=== PATIENT | female | born 1955 | race Caucasian/White ===

== ENCOUNTER → 2016-12-22 | Outpatient (CLI) | payer BC | LOC: CARD 10:39 | PROVIDERS: ATTEND Internal Medicine | DX: R00.1 Bradycardia, unspecified (principal) | CPT/HCPCS: 93225; 93226 ==

== ENCOUNTER 2019-11-18 15:02 | Emergency (ER) | payer MEDICARE, BC ==
[~2019-11-18] VITALS: Ht 167 cm; Wt 75.0 kg
--- NOTE | 2019-11-18 15:22 | ED EENT ---
History of Present Illness General Chief Complaint: Eye Problems Stated Complaint: ALTERED VISION Source: patient Exam Limitations: no limitations History of Present Illness Date Seen by Provider: Nov 18, 2019 Time Seen by Provider: 15:05 Initial Comments The patient is a 64-year-old female who presents for evaluation of flashing in her left visual field as well as a mild headache which started approximately 15 minutes prior to arrival. The patient states she has had worse headaches in the past. She states that she has also had migraines in the past. She reports that she takes amlodipine for hypertension and is not on any anticoagulation. She is alert and oriented 4, calm, and appears to be in no distress. She denies neck pain or stiffness, fevers or chills, nausea or vomiting, dizziness, chest pain or shortness of breath, abdominal or back pain, focal weakness or numbness, palpitations or syncope. She denies any pain in either eye any change in visual acuity grossly across the room. She denies any flashing in her eyes right now. She is noted to have an elevated blood pressure upon arrival. Timing/Duration: abrupt Severity: mild Location: eye (L) Prearrival Treatment: no prearrival treatment Allergies and Home Medications Allergies Coded Allergies: levofloxacin (Verified Allergy, Unknown, 11/18/19) Patient Home Medication List Home Medication List Reviewed: Yes Review of Systems Review of Systems Constitutional: no symptoms reported Eyes: Vision Changes (left visual field with bright flashes, no pain, normal vision, not currently occurring) Nose: no symptoms reported Mouth: no symptoms reported Throat: no symptoms reported Respiratory: no symptoms reported Cardiovascular: no symptoms reported Gastrointestinal: no symptoms reported Musculoskeletal: no symptoms reported Skin: no symptoms reported Neurological: No Symptoms Reported, Headache Hematologic/Lymphatic: No Symptoms Reported Immunological/Allergic: no symptoms reported All Other Systems Reviewed Negative Unless Noted: Yes Past Twbvnyx-Uxqexd-Djaabu Hx Past Med/Social Hx: Reviewed Nursing Past Med/Soc Hx Patient Social History Alcohol Use: Regular Use Number of Drinks Today: 2 Recreational Drug Use: No Smoking Status: Never a Smoker 2nd Hand Smoke Exposure: No Recent Foreign Travel: No Contact w/Someone Who Travel: No Recent Hopitalizations: No Seasonal Allergies Seasonal Allergies: No Past Medical History Surgeries: Yes (NOSE, TOES, HAND, LASIK EYE SURGERY) Orthopedic Respiratory: Yes (USES NASAL CANNULA AT NIGHT BUT REPORTS SHE DOES NOT HAVE SLEEP APNEA) Cardiac: Yes Hypertension Neurological: No Genitourinary: No Gastrointestinal: No Musculoskeletal: No Endocrine: Yes Hypothyroidsim HEENT: No Cancer: No Psychosocial: No Integumentary: No Blood Disorders: No Physical Exam Vital Signs Vital Signs - First Documented 11/18/19 11/18/19 15:15 15:43 Temp 36.8 Pulse 62 Resp 18 B/P (MAP) 202/82 (122) Pulse Ox 99 Height, Weight, BMI Height: '" Weight: lbs. oz. kg; BMI Method: General Appearance: WD/WN, no apparent distress Eyes: bilateral eye normal inspection, bilateral eye PERRL, bilateral eye EOMI Mouth/Throat: normal mouth inspection, pharynx normal Neck: non-tender, full range of motion, supple, normal inspection Cardiovascular: regular rate, rhythm, no edema, no gallop, no murmur, bradycardia Respiratory: chest non-tender, lungs clear, normal breath sounds, no respiratory distress, no accessory muscle use Gastrointestinal: normal bowel sounds, non tender, soft Neurologic/Psychiatric: inhalation therapy aide II-XII nml as tested, no motor/sensory deficits, alert, normal mood/affect, oriented x 3 Skin: normal color, warm/dry Progress/Results/Core Measures Results/Orders Lab Results Laboratory Tests Test 11/18/19 15:10 Range/Units White Blood Count 6.7 4.3-11.0 10^3/uL Red Blood Count 4.59 4.35-5.85 10^6/uL Hemoglobin 14.7 11.5-16.0 G/DL Hematocrit 44 35-52 % Mean Corpuscular Volume 96 80-99 FL Mean Corpuscular Hemoglobin 32 25-34 PG Mean Corpuscular Hemoglobin Concent 34 32-36 G/DL Red Cell Distribution Width 13.7 10.0-14.5 % Platelet Count 318 130-400 10^3/uL Mean Platelet Volume 9.4 7.4-10.4 FL Neutrophils (%) (Auto) 54 42-75 % Lymphocytes (%) (Auto) 33 12-44 % Monocytes (%) (Auto) 10 0-12 % Eosinophils (%) (Auto) 2 0-10 % Basophils (%) (Auto) 1 0-10 % Neutrophils # (Auto) 3.6 1.8-7.8 X 10^3 Lymphocytes # (Auto) 2.3 1.0-4.0 X 10^3 Monocytes # (Auto) 0.7 0.0-1.0 X 10^3 Eosinophils # (Auto) 0.1 0.0-0.3 10^3/uL Basophils # (Auto) 0.0 0.0-0.1 10^3/uL Sodium Level 139 135-145 MMOL/L Potassium Level 4.4 3.6-5.0 MMOL/L Chloride Level 103 98-107 MMOL/L Carbon Dioxide Level 23 21-32 MMOL/L Anion Gap 13 5-14 MMOL/L Blood Urea Nitrogen 22 H 7-18 MG/DL Creatinine 0.87 0.60-1.30 MG/DL Estimat Glomerular Filtration Rate > 60 BUN/Creatinine Ratio 25 Glucose Level 113 H 70-105 MG/DL Calcium Level 9.7 8.5-10.1 MG/DL Corrected Calcium 8.5-10.1 MG/DL Total Bilirubin 0.5 0.1-1.0 MG/DL Aspartate Amino Transf (AST/SGOT) 22 5-34 U/L Alanine Aminotransferase (ALT/SGPT) 24 0-55 U/L Alkaline Phosphatase 82 40-136 U/L Troponin I < 0.30 <0.30 NG/ML Total Protein 8.1 6.4-8.2 GM/DL Albumin 4.8 H 3.2-4.5 GM/DL My Orders Orders - LISSETT LÓPEZ DO Ct Head Wo (11/18/19 15:11) Cbc With Automated Diff (11/18/19 15:11) Comprehensive Metabolic Panel (11/18/19 15:11) Ed Iv/Invasive Line Start (11/18/19 15:11) Departmental Shipping Clerk (11/18/19 15:11) Troponin I Fs (11/18/19 15:11) Ekg Tracing (11/18/19 15:11) Continuous Ekg Monitoring (11/18/19 15:11) Hydralazine Injection (Apresoline Inject (11/18/19 15:45) Metoclopramide Injection (Reglan Injecti (11/18/19 16:00) Diphenhydramine Injection (Benadryl Inje (11/18/19 16:00) Ketorolac Injection (Toradol Injection) (11/18/19 16:00) Ns Iv 1000 Ml (Sodium Chloride 0.9%) (11/18/19 16:00) Medications Given in ED Current Medications Medications Dose Ordered Sig/Jack Route Start Time Stop Time Status Last Admin Dose Admin Diphenhydramine HCl 25 mg ONCE ONCE IVP 11/18/19 16:00 11/18/19 16:01 DC 11/18/19 16:03 25 MG Ketorolac Tromethamine 30 mg ONCE ONCE IVP 11/18/19 16:00 11/18/19 16:01 DC 11/18/19 16:03 30 MG Metoclopramide HCl 10 mg ONCE ONCE IVP 11/18/19 16:00 11/18/19 16:01 DC 11/18/19 16:04 10 MG Vital Signs/I&O 11/18/19 11/18/19 15:15 15:43 Temp 36.8 Pulse 62 Resp 18 18 B/P (MAP) 202/82 (122) 154/83 (106) Pulse Ox 99 Progress Progress Note : Progress Note @1625 - the patient's blood pressure return to acceptable value prior to the hydralazine being given so it will be canceled. The patient has no complaints, states that she is feeling better, and is asking to go home. Her vision is normal. She denies headache. Advised the patient to follow up with her PCP in the next 1-2 days and to return to the emergency Department immediately for new or worsening symptoms. The patient expresses verbal understanding and agreement with the plan and she is stable for discharge. Workup today fails to reveal any emergent pathology. EKG : Comment EKG@1513 - sinus bradycardia, rate of 50, normal axis, no acute ischemic findings noted, no STEMI, reviewed and interpreted by myself Departure Impression Primary Impression: Migraine Additional Impression: Flashing lights seen Disposition: HOME, SELF-CARE Condition: Stable Departure-Patient Inst. Decision time for Depature: 16:27 Referrals: FABIAN HAYS DO (PCP/Family) Primary Care Physician Patient Instructions: Migraine Headache (DC) Add. Discharge Instructions: Follow-up with your doctor in the next 1-2 days. Return to the Emergency Department immediately for new or worsening symptoms. Take Tylenol or ibuprofen at home for pain relief is needed. LISSETT LÓPEZ DO Nov 18, 2019 15:22
[2019-11-18] MEDS: hydrALAZINE (APESOLINE) 20 MG/ML VIAL IV ONE ×2 (15:30→15:40)
--- NOTE | 2019-11-18 15:41 | Diagnostic Imaging Report ---
PROCEDURE: CT head without contrast. TECHNIQUE: Multiple contiguous axial images were obtained through the brain without the use of intravenous contrast. Auto Exposure Controls were utilized during the CT exam to meet ALARA standards for radiation dose reduction. INDICATION: Flashes of light in the left eye. Symptoms last about 20 minutes and are intermittent. COMPARISON: No priors. FINDINGS: There is no intracerebral hemorrhage. There is no hydrocephalus. No edema, mass, or mass effect. The basilar cisterns are patent. There is no sulcal effacement. There is no evidence for an elevation of the intracranial pressures. There is no hydrocephalus. The orbits, sinuses, and calvarium are nonacute. IMPRESSION: No hemorrhage, edema, hydrocephalus, or acute appearing abnormalities. Dictated by: Dictated on workstation # [id number]
[2019-11-18 15:43] VITALS: BP 154/83
--- NOTE | 2019-11-18 15:44 | NUR ---
HYDRALAZINE NOT GIVEN DUE TO PTS BLOOD PRESSURE DOWN TO 154/83. DR. LÓPEZ.
[2019-11-18 15:49] LABS: HEMATOCRIT 44 % (35-52); HEMOGLOBIN 14.7 G/DL (11.5-16.0); MEAN CORPUSCULAR HEMOGLOBIN 32 PG (25-34); MEAN CORPUSCULAR HGB CONC 34 G/DL (32-36); MEAN CORPUSCULAR VOLUME 96 FL (80-99); MEAN PLATELET VOLUME 9.4 FL (7.4-10.4); NEUTROPHILS % (AUTO) 54 % (42-75); PLATELET COUNT 318 10^3/uL (130-400); RED CELL DISTRIBUTION WIDTH 13.7 % (10.0-14.5); WHITE BLOOD COUNT 6.7 10^3/uL (4.3-11.0)
[2019-11-18 15:50] LABS: BASOPHILS % (AUTO) 1 % (0-10); EOSINOPHILS # (AUTO) 0.1 10^3/uL (0.0-0.3); EOSINOPHILS % (AUTO) 2 % (0-10); LYMPHOCYTES # (AUTO) 2.3 X 10^3 (1.0-4.0); LYMPHOCYTES % (AUTO) 33 % (12-44); MONOCYTES # (AUTO) 0.7 X 10^3 (0.0-1.0); MONOCYTES % (AUTO) 10 % (0-12); NEUTROPHILS # (AUTO) 3.6 X 10^3 (1.8-7.8)
[2019-11-18 15:51] LABS: CHLORIDE 103 MMOL/L (98-107); POTASSIUM 4.4 MMOL/L (3.6-5.0); SODIUM 139 MMOL/L (135-145)
[2019-11-18 15:52] LABS: ALANINE AMINOTRANSFERASE 24 U/L (0-55); ALBUMIN 4.8 GM/DL (3.2-4.5); ALKALINE PHOSPHATASE 82 U/L (40-136); BILIRUBIN,TOTAL 0.5 MG/DL (0.1-1.0); BUN/CREATININE RATIO 25; CALCIUM 9.7 MG/DL (8.5-10.1); CARBON DIOXIDE 23 MMOL/L (21-32); CREATININE SERUM 0.87 MG/DL (0.60-1.30); GFR ESTIMATED > 60; GLUCOSE 113 MG/DL (70-105); TOTAL PROTEIN 8.1 GM/DL (6.4-8.2)
[2019-11-18] MEDS ORDERED: METOCLOPRAMIDE INJ 10 MG/2 ML (REGLAN) IVP ONE (16:00)
[2019-11-18] MEDS ORDERED: KETOROLAC 30 MG/ML VIAL IVP ONE (16:00)
[2019-11-18] MEDS ORDERED: NS IV 1000 ML 1,000 ML IV SCH (16:00)
[2019-11-18] MEDS ORDERED: diphenhydrAMINE 50 MG/ML INJ (BENADRYL) IVP ONE (16:00)
[2019-11-18 16:50] VITALS: BP 151/65
== END 2019-11-18 16:50 | disposition home or self-care (01) ==
LOC: EDUNIT# 15:02 → ER FS 15:03
DX: G43.909 Migraine, unspecified, not intractable, without status migrainosus (principal); H57.89 Other specified disorders of eye and adnexa; I10 Essential (primary) hypertension; Z88.8 Allergy status to other drugs, medicaments and biological substances
CPT/HCPCS: 36415; 70450; 80053; 84484; 85025; 93005; 96374; 96375

== ENCOUNTER 2021-01-31 11:56 | Emergency (ER) | payer MEDICARE, BC ==
[~2021-01-31] VITALS: Ht 167.7 cm; Wt 90.9 kg
[2021-01-31] MEDS ORDERED: LOSA50TA63 (12:26)
[2021-01-31] MEDS ORDERED: AMLO-250 (12:26)
--- NOTE | 2021-01-31 12:48 | ED Lower Extremity ---
General Chief Complaint: Lower Extremity Stated Complaint: LT CALF PAIN/SWELLING Nursing Triage Note: Pt presents to ED sent from [facility] for 24 hr hx left calf edema and pain. There is no ultrasound coverage with [facility] today. Nursing Sepsis Screen: No Definite Risk Source: patient Exam Limitations: no limitations History of Present Illness Date Seen by Provider: January 31, 2021 Time Seen by Provider: 11:50 Initial Comments Patient is a 65-year-old female presents with left leg/calf swelling tenderness for 1 day. Denies trauma repetitive strain injury. Denies history of DVT PE. Patient does not complain of chest pain or shortness of breath. No redness, st reaking induration fever history of cellulitis. Patient is not diabetic. No other acute symptoms or complaints. Patient was evaluated by her PCP prior to ED arrival and referred for an ultrasound of her lower extremity. Onset: yesterday Pain/Injury Location: left leg Method of Injury: other Modifying Factors: Improves With Movement, Improves With Other Allergies and Home Medications Allergies Coded Allergies: levofloxacin (Verified Allergy, Unknown, 11/18/19) Patient Home Medication List Home Medication List Reviewed: Yes Review of Systems Constitutional: see HPI EENTM: see HPI Respiratory: see HPI Cardiovascular: see HPI Gastrointestinal: see HPI Genitourinary: see HPI Musculoskeletal: see HPI Skin: see HPI Psychiatric/Neurological: See HPI All Other Systems Reviewed Negative Unless Noted: Yes Past Ywdyyff-Eqkuqc-Uxwwzh Hx Past Med/Social Hx: Reviewed Nursing Past Med/Soc Hx Patient Social History Alcohol Use: Denies Use Smoking Status: Never a Smoker 2nd Hand Smoke Exposure: No Recent Infectious Disease Expo: No Recent Hopitalizations: No Seasonal Allergies Seasonal Allergies: No Past Medical History Surgeries: Yes (NOSE, TOES, HAND, LASIK EYE SURGERY) Orthopedic Respiratory: Yes (USES NASAL CANNULA AT NIGHT BUT REPORTS SHE DOES NOT HAVE SLEEP APNEA) Cardiac: Yes Hypertension Neurological: No Genitourinary: No Gastrointestinal: No Musculoskeletal: No Endocrine: Yes Hypothyroidsim HEENT: Yes (EYE TENDON SURGERY, HX RETINAL DETACHMENT) Cancer: No Psychosocial: No Integumentary: No Blood Disorders: No Physical Exam Vital Signs Vital Signs - First Documented 01/31/21 12:00 Temp 36.6 Pulse 56 Resp 20 B/P (MAP) 155/70 (98) Pulse Ox 98 O2 Delivery Room Air Capillary Refill : Less Than 3 Seconds Height, Weight, BMI Height: '" Weight: lbs. oz. kg; 32.00 BMI Method: General Appearance: WD/WN, no apparent distress HEENT: PERRL/EOMI Neck: non-tender Cardiovascular: normal peripheral pulses, regular rate, rhythm Respiratory: chest non-tender, lungs clear, normal breath sounds Legs: left leg soft tissue tenderness Neurologic/Tendon: normal sensation, normal motor functions Neurologic/Psychiatric: alert, oriented x 3 Skin: normal color Progress/Results/Core Measures Results/Orders My Orders Orders - HEMA MENDENHALL DO Us Venous Lower Ext Lt (01/31/21 12:15) Vital Signs/I&O 01/31/21 12:00 Temp 36.6 Pulse 56 Resp 20 B/P (MAP) 155/70 (98) Pulse Ox 98 O2 Delivery Room Air Blood Pressure Mean: 98 Departure Communication (Admissions) Venous Doppler ultrasound left lower extremity: Small DVT in the distal peroneal vein. No chest pain or shortness of breath. Xarelto prescribed. Impression Primary Impression: Left leg DVT Disposition: 01 HOME, SELF-CARE Condition: Stable Departure-Patient Inst. Decision time for Depature: 12:49 Referrals: FABIAN HAYS DO (PCP/Family) Primary Care Physician Patient Instructions: Deep Vein Thrombosis (DVT) ED Add. Discharge Instructions: Your evaluated emergency department for left leg pain and swelling. Ultrasound was performed and shows a small DVT in your left calf vein. Please take newly prescribed medications as directed and follow-up with your PCP. All discharge instructions reviewed with patient and/or family. Voiced understanding. Scripts Rivaroxaban (Xarelto Starter Pack) 1 Each Tab.ds.pk 1 EACH PO UD, #51 PKG 15mg by mouth twice daily x 21 days then 20mg by mouth daily Prov: HEMA MENDENHALL DO 01/31/21 HEMA MENDENHALL DO January 31, 2021 12:48
[2021-01-31] MEDS ORDERED: RIVA1TAB PO (12:53)
--- NOTE | 2021-01-31 12:56 | Diagnostic Imaging Report ---
INDICATION: Left leg pain TECHNIQUE: Multiple real-time grayscale images were obtained over the left lower extremity in various projections, bilaterally. Additional duplex Doppler and color Doppler images were also obtained. CORRELATION STUDY: None FINDINGS: Findings are positive for occlusive clot within the large portion of the peroneal vein within the left calf. More centrally, the popliteal vein, femoral vein in the thigh and common femoral vein are patent and unremarkable. No soft tissue fluid collection. IMPRESSION: 1. Findings positive for occlusive clot within the peroneal vein left leg. Dictated by: Dictated on workstation # [id number]
[2021-01-31 13:00] VITALS: BP 155/70
== END 2021-01-31 13:00 | disposition home or self-care (01) ==
LOC: EDUNIT# 11:56 → ER FS 11:57
DX: I82.402 Acute embolism and thrombosis of unspecified deep veins of left lower extremity (principal); I10 Essential (primary) hypertension; Z88.1 Allergy status to other antibiotic agents

== ENCOUNTER 2022-09-14 07:50 | Emergency (ER) | payer MEDICARE, BC ==
[~2022-09-14] VITALS: Ht 162 cm; Wt 86.0 kg
[~2022-09-14 07:50] MED LIST: AMLO-250; LOSA50TA63; RIVA1TAB PO
[2022-09-14] MEDS ORDERED: ORPHENADRINE 60 MG/2 ML (NORFLEX) AMP (ED ONLY) IVP STA (08:02)
[2022-09-14] MEDS ORDERED: ONDANSETRON 4 MG/2 ML (SDV) Z0FRAN IVP STA (08:02)
[2022-09-14] MEDS ORDERED: KETOROLAC 30 MG/ML VIAL IVP STA (08:02)
[2022-09-14] MEDS ORDERED: diphenhydrAMINE 50 MG/ML INJ (BENADRYL) IVP STA (08:02)
[2022-09-14] MEDS ORDERED: NS IV 1000 ML 1,000 ML IV STA (08:02)
--- NOTE | 2022-09-14 08:10 | ED Headache ---
General Chief Complaint: Head/Cervical Problems Stated Complaint: HEADACHE Source: patient, spouse History of Present Illness Date Seen by Provider: Sep 14, 2022 Time Seen by Provider: 07:55 Initial Comments 67 yo female presenting with complaint of right occipital headache since waking up yesterday morning. She denies having headache like this before and states it is severe. It feels like she is being stabbed in back of right side of head with an ice pick over and over. She denies any radiation of the pain. She woke up with the pain yesterday. She denies trauma or injury. No fever, chills, vision change, vomiting, diarrhea, cough, pain with urination. She has nausea but has not thrown up. She had taken Acetaminophen for the pain with little to no relief. 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 She states she has a remote history of migraine headaches but they were never like this. She thought the pain would get better but it continued all day and overnight so she came to the ED this am. She denies any numbness, tingling or weakness in her arms or legs. Timing/Duration: 24 hours Severity/Quality: severe, stabbing Location: occipital (right side) Prior Headaches/Recent Trauma: no recent headache/trauma Modifying Factors: improves with other (nothing was making it better or worse. It just has more severe pain about every 30 seconds to a minute) Associated Symptoms: No confusion, No fatigue, No facial pain, No fever/chills, No flushing, No loss of consciousness, No nasal congestion, No nasal drainage, No numbness in legs/feet, No rash, No seizures, No sinus infection, No stiff neck, No vision changes, No weakness Allergies and Home Medications Allergies Coded Allergies: levofloxacin (Verified Allergy, Unknown, 11/18/19) Patient Home Medication List Home Medication List Reviewed: Yes Amlodipine Besylate (Amlodipine Besylate) 5 Mg Tablet, (Reported) Entered as Reported by: BOB DUKES on 01/31/21 1226 Losartan Potassium (Losartan Potassium) 50 Mg Tablet, (Reported) Entered as Reported by: BOB DUKES on 01/31/21 1226 Orphenadrine Citrate (Orphenadrine Citrate) 100 Mg Tablet.er, 100 MG PO BID PRN for muscle spasms/headache Prescribed by: CORIE CRISTOBAL on 09/14/22 0907 Rivaroxaban (Xarelto Starter Pack) 1 Each Tab.ds.pk, 1 EACH PO UD Prescribed by: HEMA MENDENHALL on 01/31/21 1253 Review of Systems Review of Systems Constitutional: No chills, No dizziness, No fever Eyes: Denies Blurred Vision, Denies Photophobia Ears, Nose, Mouth, Throat: denies ear pain, denies ear discharge, denies nose pain, denies nose discharge, denies epistaxis Respiratory: No cough Cardiovascular: No chest pain Gastrointestinal: No diarrhea; nausea; No vomiting Genitourinary: No dysuria Musculoskeletal: no symptoms reported Skin: No rash Psychiatric/Neurological: Headache; Denies Numbness, Denies Paresthesia, Denies Weakness Past Malmwae-Dnojqd-Fqzuzt Hx Patient Social History Tobacco Use?: No Use of E-Cig and/or Vaping dev: No Substance use?: No Alcohol Use?: Yes Alcohol type: Wine Alcohol Frequency: Several times a month Seasonal Allergies Seasonal Allergies: No Past Medical History Surgery/Hospitalization HX: Hypertension, Hypothyroid Surgeries: Yes (NOSE, TOES, HAND, LASIK EYE SURGERY) Orthopedic Respiratory: Yes (USES NASAL CANNULA AT NIGHT BUT REPORTS SHE DOES NOT HAVE SLEEP APNEA) Cardiac: Yes Hypertension Neurological: No Genitourinary: No Gastrointestinal: No Musculoskeletal: No Endocrine: Yes Hypothyroidsim HEENT: Yes (EYE TENDON SURGERY, HX RETINAL DETACHMENT) Cancer: No Psychosocial: No Integumentary: No Blood Disorders: No Physical Exam Vital Signs Vital Signs - First Documented 09/14/22 07:57 Temp 36.6 Pulse 73 Resp 18 B/P (MAP) 109/91 (97) O2 Delivery Room Air Capillary Refill : Height, Weight, BMI Height: '" Weight: lbs. oz. kg; 32.00 BMI Method: General Appearance: moderate distress (holding the back of her head on right side and keeping her face down) HEENT: PERRL/EOMI, pharynx normal Neck: non-tender, full range of motion, supple, normal inspection Cardiovascular: normal peripheral pulses, regular rate, rhythm Respiratory: chest non-tender, lungs clear, normal breath sounds Gastrointestinal: normal bowel sounds, soft, no pulsatile mass Extremities: normal range of motion, non-tender, normal capillary refill Psychiatric: alert, oriented x 3 Crainal Nerves: normal hearing, normal speech, PERRL Coordination/Gait: normal gait Motor/Sensory: no motor deficit, no sensory deficit Skin: normal color, warm/dry; No rash Progress/Results/Core Measures Results/Orders Lab Results Laboratory Tests Test 09/14/22 08:06 Range/Units White Blood Count 4.4 4.3-11.0 10^3/uL Red Blood Count 4.42 3.80-5.11 10^6/uL Hemoglobin 14.0 11.5-16.0 g/dL Hematocrit 41 35-52 % Mean Corpuscular Volume 92 80-99 fL Mean Corpuscular Hemoglobin 32 25-34 pg Mean Corpuscular Hemoglobin Concent 35 32-36 g/dL Red Cell Distribution Width 13.7 10.0-14.5 % Platelet Count 220 130-400 10^3/uL Mean Platelet Volume 9.3 9.0-12.2 fL Immature Granulocyte % (Auto) 0 % Neutrophils (%) (Auto) 51 42-75 % Lymphocytes (%) (Auto) 35 12-44 % Monocytes (%) (Auto) 13 H 0-12 % Eosinophils (%) (Auto) 0 0-10 % Basophils (%) (Auto) 1 0-10 % Neutrophils # (Auto) 2.3 1.8-7.8 10^3/uL Lymphocytes # (Auto) 1.5 1.0-4.0 10^3/uL Monocytes # (Auto) 0.6 0.0-1.0 10^3/uL Eosinophils # (Auto) 0.0 0.0-0.3 10^3/uL Basophils # (Auto) 0.0 0.0-0.1 10^3/uL Immature Granulocyte # (Auto) 0.0 0.0-0.1 10^3/uL Sodium Level 137 135-145 MMOL/L Potassium Level 3.7 3.6-5.0 MMOL/L Chloride Level 102 98-107 MMOL/L Carbon Dioxide Level 22 21-32 MMOL/L Anion Gap 13 5-14 MMOL/L Blood Urea Nitrogen 14 7-18 MG/DL Creatinine 0.79 0.60-1.30 MG/DL Estimat Glomerular Filtration Rate 81 BUN/Creatinine Ratio 18 Glucose Level 135 H 70-105 MG/DL Calcium Level 9.2 8.5-10.1 MG/DL Corrected Calcium 8.9 8.5-10.1 MG/DL Total Bilirubin 0.4 0.1-1.0 MG/DL Aspartate Amino Transf (AST/SGOT) 28 5-34 U/L Alanine Aminotransferase (ALT/SGPT) 29 0-55 U/L Alkaline Phosphatase 83 40-136 U/L Total Protein 7.2 6.4-8.2 GM/DL Albumin 4.4 3.2-4.5 GM/DL My Orders Orders - CORIE CRISTOBAL MD Ed Iv/Invasive Line Start (09/14/22 08:02) Cbc With Automated Diff (09/14/22 08:02) Comprehensive Metabolic Panel (09/14/22 08:02) Ketorolac Injection (Toradol Injection) (09/14/22 08:02) Diphenhydramine Injection (Benadryl Inje (09/14/22 08:02) Ondansetron Injection (Zofran Injectio (09/14/22 08:02) Orphenadrine Inj (Ed Only) (Norflex Inje (09/14/22 08:02) Ns Iv 1000 Ml (Sodium Chloride 0.9%) (09/14/22 08:02) Ct Head Wo (09/14/22 08:04) Methylprednisolone Sod Succ (Solu-Medrol (09/14/22 09:05) Vital Signs/I&O 09/14/22 07:57 Temp 36.6 Pulse 73 Resp 18 B/P (MAP) 109/91 (97) O2 Delivery Room Air Progress Progress Note #1: Progress Note Obtain IV access and basic labs to look for signs of infection, anemia, electrolyte imbalance, renal failure, hepatic failure. CT scan of head since she reports this is severe stabbing pain and unlike migraine headaches she had in remote past. Give NS 1 L IVF bolus for hydration, Toradol 30 mg IV for pain, Benadryl 25 mg IV for nausea and anti-histamine effect, Norflex 60 mg IV for muscle spasms in neck, Zofran 4 mg IV for nausea. Progress Note #2: Time: 08:38 Progress Note Patient initially refused Toradol as she was worried it was the medicine she had gotten on a previous ED visit that made her feel eliezer eddy was going to . She reports the pain was better on return from CT. CT scan read out by radiologist as no acute intracranial process. Awaiting chemistry and may still administer Toradol if pain comes back. CBC without elevated WBC and normal blood count and platelets. Progress Note #3: Time: 08:46 Progress Note Chemistry panel without acute significant abnormality. She has mild elevation of glucose to 135 that could be more of stress response with her pain. Will recheck on patient and review test results. This might be headache from sleeping wrong or muscle spasms in neck but no sign of sinusitis, brain mass, bleeding, infection, electrolyte abnormality. Could continue muscle relaxer and nausea med icine at home. Check back with pcp for continued concerns or if not improving. Alternate ice and heat to the right occipital area. Progress Note #4: Time: 09:04 Progress Note After reviewing test results with patient and spouse she continued to have intermittent stabbing pain in back of her head but reports it is improved. She still refuses the Toradol as she thinks it is the medicine that made her feel bad when she had taken it previously. I tried to explain that it was more likely the Reglan (Metoclopramide) that made her feel bad. There is no note about her having symptoms after injections in Oct 2019. She did finally agree to a steroid shot for inflammation and will give Solumedrol 125 mg IV x 1. Encouraged to alternate ice and hat to back of head and neck to help with inflammation and muscle spasms. prescribe norflex for home since she had some improvement here with that by IV. Counseled to check with Dr. Carter for continued symptoms or not improving as she may need MRI or additional testing beyond what I have access to here in [facility] as the tests I ran here did not show any acute abnormality. Diagnostic Imaging Diagonstic Imaging: CT Plain Films/CT/US/NM/MRI: head Comments NAME: CARMELO PEÑA MED REC#: [id number] PT STATUS: REG ER : 1955 PHYSICIAN: CORIE CRISTOBAL MD ADMIT DATE: 09/14/22/ER FS Draft Date of Exam:09/14/22 CT HEAD WO EXAMINATION: CT head without contrast. TECHNIQUE: Multiple contiguous axial images were obtained through the brain without the use of intravenous contrast. All CT scans use one or more of the following dose optimizing techniques: automated exposure control, MA and/or KvP adjustment based on patient size and exam type or iterative reconstruction. HISTORY: right occipital headache x 24 hours COMPARISON: 11/18/2019 FINDINGS: The ventricles and sulci are normal. No abnormal attenuation of brain parenchyma is present. No acute intracranial hemorrhage or abnormal extra-axial fluid collections are present. Calcification of the intracranial ICAs. No hyperdense vessel. The calvarium is intact. The mastoid air cells are clear. The visualized paranasal sinuses are clear. The orbits are normal. IMPRESSION: 1. No acute intracranial abnormality. Dictated on workstation # [id number] Dict: 09/14/22827 Trans: 09/14/22829 [id number] Interpreted by: LISSETT THOMAS DO Electronically signed by: Reviewed: Reviewed by Me Departure Impression Primary Impression: Unilateral occipital headache Disposition: 01 HOME, SELF-CARE Condition: Stable Departure-Patient Inst. Decision time for Depature: 09:08 Referrals: FABIAN CARTER DO (PCP/Family) Primary Care Physician Patient Instructions: Headache, Adult ED, Home Headache Remedies, Using Cold for Pain, Using Heat for Pain Add. Discharge Instructions: Try resting in cool dark room. Consider trying anti-inflammatory medicine such as Ibuprofen or Naproxen to help with the pain. Try the Muscle relaxer Norflex (Orphenadrine) to help with spasms in your neck and back of your head. Try alternating ice and heat to the area on back of your head and neck on right side where you have pain. Check back with your primary care provider for continued concerns or if not improving. Your labs and CT scan of your head do not show any acute findings to be causing your headache. All discharge instructions reviewed with patient and/or family. Voiced understanding. Scripts Orphenadrine Citrate (Orphenadrine Citrate) 100 Mg Tablet.er 100 MG PO BID PRN for muscle spasms/headache for 5 Days, #10 TAB 0 Refills Prov: CORIE CRISTOBAL MD 09/14/22 CORIE CRISTOBAL MD Sep 14, 2022 08:10
[2022-09-14 08:16] LABS: BASOPHILS % (AUTO) 1 % (0-10); EOSINOPHILS % (AUTO) 0 % (0-10); HEMATOCRIT 41 % (35-52); LYMPHOCYTES # (AUTO) 1.5 10^3/uL (1.0-4.0); LYMPHOCYTES % (AUTO) 35 % (12-44); MEAN CORPUSCULAR HEMOGLOBIN 32 pg (25-34); MEAN CORPUSCULAR HGB CONC 35 g/dL (32-36); MEAN CORPUSCULAR VOLUME 92 fL (80-99); MEAN PLATELET VOLUME 9.3 fL (9.0-12.2); MONOCYTES # (AUTO) 0.6 10^3/uL (0.0-1.0); MONOCYTES % (AUTO) 13 % (0-12); NEUTROPHILS # (AUTO) 2.3 10^3/uL (1.8-7.8); NEUTROPHILS % (AUTO) 51 % (42-75); PLATELET COUNT 220 10^3/uL (130-400); WHITE BLOOD COUNT 4.4 10^3/uL (4.3-11.0)
--- NOTE | 2022-09-14 08:31 | Diagnostic Imaging Report ---
EXAMINATION: CT head without contrast. TECHNIQUE: Multiple contiguous axial images were obtained through the brain without the use of intravenous contrast. All CT scans use one or more of the following dose optimizing techniques: automated exposure control, MA and/or KvP adjustment based on patient size and exam type or iterative reconstruction. HISTORY: right occipital headache x 24 hours COMPARISON: 11/18/2019 FINDINGS: The ventricles and sulci are normal. No abnormal attenuation of brain parenchyma is present. No acute intracranial hemorrhage or abnormal extra-axial fluid collections are present. Calcification of the intracranial ICAs. No hyperdense vessel. The calvarium is intact. The mastoid air cells are clear. The visualized paranasal sinuses are clear. The orbits are normal. IMPRESSION: 1. No acute intracranial abnormality. Dictated by: Dictated on workstation # [id number]
[2022-09-14 08:41] LABS: POTASSIUM 3.7 MMOL/L (3.6-5.0)
[2022-09-14 08:42] LABS: ALBUMIN 4.4 GM/DL (3.2-4.5); BILIRUBIN,TOTAL 0.4 MG/DL (0.1-1.0); CALCIUM 9.2 MG/DL (8.5-10.1); CREATININE SERUM 0.79 MG/DL (0.60-1.30); TOTAL PROTEIN 7.2 GM/DL (6.4-8.2)
[2022-09-14] MEDS ORDERED: methylPREDNISolone 125 MG (Solu-MEDROL) VIAL IVP STA (09:05)
[2022-09-14] MEDS ORDERED: ORPH100T PO (09:07)
[2022-09-14 09:19] VITALS: BP 109/91
== END 2022-09-14 09:31 | disposition home or self-care (01) ==
LOC: EDUNIT# 07:50 → ER FS 07:52
DX: R51.9 Headache, unspecified (principal); R73.9 Hyperglycemia, unspecified; Z28.310 Unvaccinated for COVID-19
CPT/HCPCS: 36415; 70450; 80053; 85025

== ENCOUNTER 2022-09-16 16:57 | Emergency (ER) | payer MEDICARE, BC ==
[~2022-09-16 16:57] MED LIST changes: +ORPH100T PO
[2022-09-16] MEDS ORDERED: KETOROLAC 60 MG/2 ML VIAL IM ONE (17:15)
[2022-09-16] MEDS ORDERED: OXYC1TAB87 PO (17:20)
[2022-09-16] MEDS ORDERED: NF-CARBAMX PO (17:20)
--- NOTE | 2022-09-16 17:24 | ED Headache ---
General Chief Complaint: Head/Cervical Problems Stated Complaint: HEAD/NECK PAIN Nursing Triage Note: PT REPORTS SHE IS STILL HAVING THE STABBING PAIN IN THE POSTERIOR RIGHT SIDE OF HEAD ABOUT EVERY 20 SECONDS JUST LIKE SHE HAD ON HER VISIT 2 DAYS AGO. Source: patient History of Present Illness Date Seen by Provider: Sep 16, 2022 Time Seen by Provider: 17:00 Initial Comments Patient is a 59-year-old female presents with intense unilateral right sided occipital scalp pain. Pain is brief last seconds at a time and sporadically 2-3 times a minute. Symptoms began approximately 2 days ago. Patient was evaluated in the emergency department and seen here for the same. She was prescribed a muscle relaxant which she has taken with limited relief. Patient reports scalp tenderness but denies injury or headache. Pain is currently 10 out of 10. No vision changes, neck pain, neurologic deficits. No nausea or vomiting. No other acute symptoms or complaints Timing/Duration: other Severity/Quality: other Location: other Prior Headaches/Recent Trauma: other Modifying Factors: improves with other Associated Symptoms: other Allergies and Home Medications Allergies Coded Allergies: levofloxacin (Verified Allergy, Unknown, 11/18/19) Patient Home Medication List Home Medication List Reviewed: Yes Amlodipine Besylate (Amlodipine Besylate) 5 Mg Tablet, (Reported) Entered as Reported by: BOB DUKES on 01/31/21 1226 Losartan Potassium (Losartan Potassium) 50 Mg Tablet, (Reported) Entered as Reported by: BOB DUKES on 01/31/21 1226 Orphenadrine Citrate (Orphenadrine Citrate) 100 Mg Tablet.er, 100 MG PO BID PRN for muscle spasms/headache Prescribed by: CORIE CRISTOBAL on 09/14/22 0907 Rivaroxaban (Xarelto Starter Pack) 1 Each Tab.ds.pk, 1 EACH PO UD Prescribed by: HEMA MENDENHALL on 01/31/21 1253 Review of Systems Review of Systems Constitutional: see HPI Eyes: See HPI Ears, Nose, Mouth, Throat: see HPI Respiratory: see HPI Cardiovascular: see HPI Gastrointestinal: see HPI Genitourinary: see HPI Musculoskeletal: see HPI Skin: see HPI Psychiatric/Neurological: See HPI All Other Systems Reviewed Negative Unless Noted: No Past Jrwlvdx-Jijtqa-Ixpdmn Hx Patient Social History Tobacco Use?: No Use of E-Cig and/or Vaping dev: No Substance use?: No Alcohol Use?: No Pt feels they are or have been: No Seasonal Allergies Seasonal Allergies: No Past Medical History Surgery/Hospitalization HX: Hypertension, Hypothyroid Surgeries: Yes (NOSE, TOES, HAND, LASIK EYE SURGERY) Orthopedic Respiratory: Yes (USES NASAL CANNULA AT NIGHT BUT REPORTS SHE DOES NOT HAVE SLEEP APNEA) Cardiac: Yes Hypertension Neurological: No Genitourinary: No Gastrointestinal: No Musculoskeletal: No Endocrine: Yes Hypothyroidsim HEENT: Yes (EYE TENDON SURGERY, HX RETINAL DETACHMENT) Cancer: No Psychosocial: No Integumentary: No Blood Disorders: No Physical Exam Vital Signs Vital Signs - First Documented 09/16/22 17:08 Temp 37.3 Pulse 71 Resp 18 B/P (MAP) 162/93 (116) Pulse Ox 98 O2 Delivery Room Air Capillary Refill : Less Than 3 Seconds Height, Weight, BMI Height: '" Weight: lbs. oz. kg; 32.00 BMI Method: General Appearance: WD/WN, mild distress (Mild distress secondary to) HEENT: PERRL/EOMI, normal ENT inspection Neck: tender lateral (Right lateral several scalp tenderness,), other Cardiovascular: normal peripheral pulses, regular rate, rhythm Respiratory: lungs clear Psychiatric: alert, oriented x 3 Progress/Results/Core Measures Results/Orders My Orders Orders - HEMA MENDENHALL DO Ketorolac Injection (Toradol Injection) (09/16/22 17:15) Vital Signs/I&O 09/16/22 17:08 Temp 37.3 Pulse 71 Resp 18 B/P (MAP) 162/93 (116) Pulse Ox 98 O2 Delivery Room Air Blood Pressure Mean: 116 Departure Communication (Admissions) Patient's pain is in distribution pattern of greater simple nerve. Toradol given. Will treat for occipital neuralgia with PCP follow-up. Impression Primary Impression: Neuralgia Disposition: 01 HOME, SELF-CARE Condition: Stable Departure-Patient Inst. Decision time for Depature: 17:18 Referrals: FABIAN HAYS DO (PCP/Family) Primary Care Physician Patient Instructions: Neuropathic Pain Scripts Oxycodone HCl/Acetaminophen (Percocet 5-325 mg Tablet) 1 Each Tablet 1 TAB PO Q4H for PAIN-MODERATE MDD 6 TABS for 7 Days, #10 TAB Prov: HEMA MENDENHALL DO 09/16/22 Carbamazepine (Tegretol Xr) 100 Mg Tab 100 MG PO BID, #30 TAB Prov: HEMA MENDENHALL DO 09/16/22 HEMA MENDENHALL DO Sep 16, 2022 17:24
[2022-09-16 17:25] VITALS: BP 162/93
== END 2022-09-16 17:37 | disposition home or self-care (01) ==
LOC: EDUNIT# 16:57 → ER FS 16:58
DX: M79.2 Neuralgia and neuritis, unspecified (principal)
CPT/HCPCS: 99284

== ENCOUNTER 2022-09-17 14:16 | Emergency (ER) | payer MEDICARE, BC ==
[~2022-09-17] VITALS: Ht 167.5 cm; Wt 86.3 kg
[~2022-09-17 14:16] MED LIST changes: +NF-CARBAMX PO; +OXYC1TAB87 PO
[2022-09-17] MEDS ORDERED: TRIAMCINOLONE ACET (KENALOG-40) 40 MG/ML 1 ML VIAL ID ONE (14:45)
--- NOTE | 2022-09-17 14:53 | ED General ---
General Chief Complaint: General Problems/Pain Stated Complaint: VOMITING/HEAD PAIN Nursing Triage Note: pt states severe headache and nausea/vomiting for a few days. has been unable to eat for days. was seen in [place] [facility] twice within the past few days. Source of Information: Patient Exam Limitations: No Limitations History of Present Illness Date Seen by Provider: Sep 17, 2022 Time Seen by Provider: 14:40 Initial Comments 67-year-old female presents the emergency department for back pain posterior to the right ear. Symptoms present since Sunday of last week. Is a sharp stabbing pain intermittently but clustered happening for about 2 or 3 hours at a time. She describes this as an electric-like sensation. No obvious aggravating or alleviating factors. No radiation. No fevers chills cough chest pain abdo johanne pain. Over the last 4 hours she started to have vomiting she thinks secondary to the pain. She is been seen in the emergency department with this being her third visit, 2 previous visits in [place]. The first time she had a CT scan and was given IV fluids for headache. Last time she was told this was "inflammation of the nerve." She has been taking Percocet, gabapentin and Zofran without much relief. Allergies and Home Medications Allergies Coded Allergies: levofloxacin (Verified Allergy, Unknown, 11/18/19) Patient Home Medication List Home Medication List Reviewed: Yes Amlodipine Besylate (Amlodipine Besylate) 5 Mg Tablet, (Reported) Entered as Reported by: BOB DUKES on 01/31/21 1226 Carbamazepine (Tegretol Xr) 100 Mg Tab, 100 MG PO BID Prescribed by: HEMA MENDENHALL on 09/16/22 1720 Losartan Potassium (Losartan Potassium) 50 Mg Tablet, (Reported) Entered as Reported by: BOB DUKES on 01/31/21 1226 Orphenadrine Citrate (Orphenadrine Citrate) 100 Mg Tablet.er, 100 MG PO BID PRN for muscle spasms/headache Prescribed by: CORIE CRISTOBAL on 09/14/22 0907 Oxycodone HCl/Acetaminophen (Percocet 5-325 mg Tablet) 1 Each Tablet, 1 TAB PO Q 4H Prescribed by: HEMA MENDENHALL on 09/16/22 1720 Rivaroxaban (Xarelto Starter Pack) 1 Each Tab.ds.pk, 1 EACH PO UD Prescribed by: HEMA MENDENHALL on 01/31/21 1253 Review of Systems Review of Systems Constitutional: no symptoms reported EENTM: no symptoms reported Respiratory: no symptoms reported Cardiovascular: no symptoms reported Gastrointestinal: no symptoms reported Genitourinary: no symptoms reported Musculoskeletal: no symptoms reported Skin: no symptoms reported Psychiatric/Neurological: No Symptoms Reported Hematologic/Lymphatic: No Symptoms Reported Immunological/Allergic: no symptoms reported Past Ksyfjxx-Aywekh-Jjqoes Hx Patient Social History Tobacco Use?: No Substance use?: No Alcohol Use?: No Immunizations Up To Date Influenza Vaccine Up-to-Date: No; Not Current Seasonal Allergies Seasonal Allergies: No Past Medical History Surgery/Hospitalization HX: Hypertension, Hypothyroid Surgeries: Yes (NOSE, TOES, HAND, LASIK EYE SURGERY) Orthopedic Respiratory: Yes (USES NASAL CANNULA AT NIGHT BUT REPORTS SHE DOES NOT HAVE SLEEP APNEA) Cardiac: Yes Hypertension Neurological: No Genitourinary: No Gastrointestinal: No Musculoskeletal: No Endocrine: Yes Hypothyroidsim HEENT: Yes (EYE TENDON SURGERY, HX RETINAL DETACHMENT) Cancer: No Psychosocial: No Integumentary: No Blood Disorders: No Family Medical History Reviewed Nursing Family Hx No Pertinent Family Hx Physical Exam Vital Signs Vital Signs - First Documented 09/17/22 14:23 Temp 35.3 Pulse 49 Resp 16 B/P (MAP) 149/77 (101) Pulse Ox 96 Capillary Refill : Height, Weight, BMI Height: '" Weight: lbs. oz. kg; 30.00 BMI Method: General Appearance: No Apparent Distress, WD/WN HEENT: Normal ENT Inspection, Pharynx Normal Neck: Full Range of Motion, Non Tender Respiratory: Chest Non Tender, Lungs Clear, Normal Breath Sounds, No Accessory Muscle Use, No Respiratory Distress Cardiovascular: Regular Rate, Rhythm, No Edema, No Murmur, Normal Peripheral Pulses Gastrointestinal: Normal Bowel Sounds, No Organomegaly, No Pulsatile Mass, Non Tender, Soft Extremity: Normal Capillary Refill, Normal Inspection, Non Tender, No Calf Tenderness Neurologic/Psychiatric: Alert, Oriented x3, No Motor/Sensory Deficits, Normal Mood/Affect Skin: Normal Color, Warm/Dry Lymphatic: No Adenopathy Progress/Results/Core Measures Suspected Sepsis SIRS Temperature: Pulse: 49 Respiratory Rate: 16 Blood Pressure 149 /77 Mean: 101 Results/Orders My Orders Orders - JO DIANE DO Triamcinolone Acetonide Im (Kenalog-40) (09/17/22 14:45) Lidocaine 1% Inj 10 Ml (Xylocaine 1% Inj (09/17/22 15:00) Medications Given in ED Current Medications Medications Dose Ordered Sig/Jack Route Start Time Stop Time Status Last Admin Dose Admin Lidocaine HCl 10 ml ONCE ONCE INJ 09/17/22 15:00 09/17/22 15:01 DC 09/17/22 14:59 10 ML Triamcinolone Acetonide 40 mg ONCE ONCE ID 09/17/22 14:45 09/17/22 14:49 DC 09/17/22 14:59 40 MG Vital Signs/I&O 09/17/22 14:23 Temp 35.3 Pulse 49 Resp 16 B/P (MAP) 149/77 (101) Pulse Ox 96 Capillary Refill : Blood Pressure Mean: 101 Departure Communication (Admissions) The patient is hemodynamically stable. She has clear occipital neuralgia with classic symptoms. I gave her an injection of steroid, local anesthetic with near complete resolution of her symptoms after completion. I advised her that this may take away her symptoms longer-term however once this wore off they could come back. She states understanding. She will continue to take her carbamazepine as well as Percocet has been helping her intermittently. She will follow-up with her primary doctor tomorrow for further evaluation and treatment recommendations. She is discharged home in stable condition. Impression Primary Impression: Occipital neuralgia of right side Disposition: 01 HOME, SELF-CARE Condition: Stable Departure-Patient Inst. Referrals: FABIAN HAYS DO (PCP/Family) Primary Care Physician Patient Instructions: Trigeminal Neuralgia Add. Discharge Instructions: Continue medications as previously prescribed. Return to the emergency department for any severe concerns All discharge instructions reviewed with patient and/or family. Voiced understanding. JO DIANE DO Sep 17, 2022 14:53
[2022-09-17] MEDS ORDERED: LIDOCAINE 1% INJ 10 ML VIAL INJ ONE (15:00)
[2022-09-17 15:08] VITALS: BP 135/78
== END 2022-09-17 15:08 | disposition home or self-care (01) ==
LOC: EDUNIT# 14:16 → ER 14:19
DX: M54.81 Occipital neuralgia (principal); Z28.310 Unvaccinated for COVID-19
CPT/HCPCS: 99281